=== PATIENT | female | born 1950 | race Caucasian/White ===

== ENCOUNTER 2019-06-16 08:35 | Outpatient (CLI) | payer OTHER ==
[~2019-06-16 08:35] MED LIST: CIPRO500 MG PO; EFFEXOR XR37.5 MG; LEVSIN/SL0.125 MG PO; LYRICA225 MG PO; PROTONIX40 MG PO; SYNTHROID50 MCG; SYNTHROID75 MCG PO
== END 2019-06-16 08:45 | disposition home or self-care (01) ==
LOC: SONOGRAMA 08:35
DX: E04.2 Nontoxic multinodular goiter (principal)